=== PATIENT | male | born 1990 | race African-American/Black ===

== ENCOUNTER 2017-04-02 14:17 | Emergency (ER) | payer OTHER ==
[~2017-04-02] VITALS: Ht 182.9 cm; Wt 70.3 kg
--- NOTE | ~2017-04-02 | EKG ---
[place] [address] [employer] [place] [address] ELECTROCARDIOGRAM REPORT Name: TLKOURTNEY JOE Room #: DEP [facility]#: [id number] Admission: 04/02/17 Attend Phys: Discharge: 04/02/17 Date of : [birth year] Report #: [id number] THIS REPORT FOR: //name// [facility] ED Test Date: 2017-04-02 Test Time: 15:14:11 Pat Name: KOURTNEY BOOTHE Department: Room: Gender: [employer]pper: Chava : 1990 Requested By: Willy Trevino Order Number: [id number] MD: Zechariah Burkett Measurements Intervals [place] Rate: 81 P: 78 MI: 163 QRS: 43 QRSD: 90 T: 24 QT: 340 QTc: 395 Interpretive Statements Sinus rhythm ST elev, probable normal early repol pattern No previous ECG available for comparison Electronically Signed On 04-03-2017 7:47:38 CDT by Zechariah Burkett [email or web address] <ELECTRONICALLY SIGNED> By: Zechariah Burkett MD, [facility] 04/03/17 0747 1514 1514 Zechariah Burkett MD, FACC /EPI
--- NOTE | ~2017-04-02 | EKG ---
[place] [address] [facility] [place] [address] ELECTROCARDIOGRAM REPORT Name: TLKOURTNEY FER Room #: DEP [facility]#: [id number] Admission: 04/02/17 Attend Phys: Discharge: 04/02/17 Date of : [birth year] Report #: [id number] THIS REPORT FOR: //name// 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
[2017-04-02 15:03] LABS: URINE BILIRUBIN NEGATIVE (Negative); URINE BLOOD TRACE (Negative); URINE COLOR YELLOW; URINE GLUCOSE-RANDOM* NEGATIVE (Negative); URINE KETONES NEGATIVE (Negative); URINE LEUKOCYTES-REFLEX NEGATIVE (Negative); URINE PROTEIN (DIPSTICK) NEGATIVE (Negative); URINE SPECIFIC GRAVITY 1.015 (1.003-1.035); URINE UROBILINOGEN 0.2 E.U./dl (0.2-1.0)
[2017-04-02 15:09] LABS: HEMATOCRIT 42.3 % (42.0-52.0); HEMOGLOBIN 14.5 gm/dL (14.0-18.0); MCH 29.4 pg (26.0-34.0); MCHC 34.2 g/dL (28.0-37.0); MCV 86.1 fL (80.0-100.0); PLATELET COUNT 215 thou/uL (150-400); RBC 4.92 mil/uL (4.50-6.00); RDW 13.1 % (10.5-14.5); WBC 12.1 thou/uL (4.0-11.0)
[2017-04-02 15:10] LABS: MANUAL DIFF YES
[2017-04-02 15:20] LABS: ANION GAP 6 mmol/L (7-16); BUN 9 mg/dL (7-18); CHLORIDE 101 mmol/L (98-107); CO2 31 mmol/L (21-32); CREATININE 1.2 mg/dL (0.7-1.3); GLUCOSE 87 mg/dL (74-106); POTASSIUM 3.4 mmol/L (3.5-5.1); SODIUM 138 mmol/L (136-145)
[2017-04-02 15:39] LABS: ALBUMIN 3.8 g/dL (3.4-5.0); ALKALINE PHOSPHATASE 72 U/L (46-116); CK-MB MASS < 0.5 ng/mL (<0.5-3.6); MAGNESIUM 2.2 mg/dL (1.8-2.4); NT-PRO BRAIN NAT PEPTIDE 8 pg/mL (<300); SGOT 16 U/L (15-37); SGPT 19 U/L (30-65); TOTAL PROTEIN 8.2 g/dL (6.4-8.2); TROPONIN-I < 0.04 ng/mL (<0.04-0.07)
[2017-04-02 16:21] LABS: ABSOLUTE NEUTROPHILS 10.2 thou/uL (1.4-8.2); TOTAL CELL COUNT 100
[2017-04-02 16:23] LABS: LARGE PLATELETS RARE
[2017-04-02] MEDS ORDERED: ANTIVERT25 MG PO (16:42)
[2017-04-02] MEDS ORDERED: NAPROSYN500 MG PO (16:42)
[2017-04-02 17:06] VITALS: BP 113/64
== END 2017-04-02 17:13 | disposition home or self-care (01) ==
LOC: ER 14:17
PROVIDERS: Emergency Medicine
DX: R42 Dizziness and giddiness (principal); R09.1 Pleurisy; N50.812 Left testicular pain